=== PATIENT | female | born 1970 | race Caucasian/White ===

== ENCOUNTER 2018-03-26 08:35 | Emergency (ER) | payer MEDICAID ==
--- NOTE | 2018-03-26 08:50 | EDPHY ---
H & P Time Seen by Provider: 03/26/18 08:48 HPI/ROS: CHIEF COMPLAINT: Chest tightness HISTORY OF PRESENT ILLNESS: Patient is a history of hypertension and is on lisinopril. She did check her blood pressure over the weekend at the grocery store and got readings of 177/110 on Sunday and Sunday. She had a stressful morning with her 17-year-old daughter and noticed a knot in the center of her chest which she was driving to dropped her daughter off at school around 7:30 a.m.. When she went to go drop off her son it progressed to a left-sided chest tightness, she presents for evaluation. Symptoms mild on the left side. Do not radiate, not associated with diaphoresis or vomiting or jaw or arm or neck or back symptoms. Not exertional or pleuritic. No cough or hemoptysis. REVIEW OF SYSTEMS: Eye: Yesterday had some slight blurry vision, normal now ENT: no sore throat Cardiac: HPI no palpitations Pulmonary: no cough or SOB Abdomen: no vomiting, diarrhea, abdominal pain Musculoskeletal: no back pain or leg swelling Skin: no rash Neuro: no headache Constitutional: no fever : no urinary symptoms A comprehensive 10 point review of systems is otherwise negative aside from elements mentioned in the history of present illness. PAST MEDICAL HISTORY: Patient presented with chest pain and 07/10/2013 had a negative stress echo. History of hypertension. Appendectomy and orthopedic surgery. Negative for hypercholesterolemia or diabetes. Family history: Unknown, adopted Social history: Current nonsmoker, no recent travel or immobilization. General Appearance: Alert and conversant, cooperative. Eyes: No scleral icterus. ENT, Mouth: Normal mucous membranes. Respiratory: Normal respiratory effort, breath sounds equal, lungs are clear to auscultation. Not splinting. Cardiovascular: Regular rate and rhythm. Gastrointestinal: Abdomen is soft and non tender. Neurological: Alert, face symmetric, normal motor and sensory in extremities. Skin: Warm and dry, no rashes. Musculoskeletal: No peripheral edema. No calf tenderness. Psychiatric: Not agitated. Emergency Department course/MDM: EKG is normal. 1145: Patient has a HEART score of 3. 1 for age, 1 for risk factors, 1 for history. The shared decision-making instrument was personally reviewed with the patient by myself, including the risk of MACE. Patient states understanding and agreement with the chosen disposition after 2nd troponin. 1153: Discussed with Kemi patient's PCP. Can see patient tomorrow in the office to discuss adding a medication; call at 1230pm. Do not change her antihypertensive medication regimen at this time Smoking Status: Former smoker Constitutional: Initial Vital Signs Temperature (C) 36.9 C 03/26/18 08:41 Heart Rate 63 03/26/18 08:41 Respiratory Rate 16 03/26/18 08:41 Blood Pressure 202/100 H 03/26/18 08:41 O2 Sat (%) 98 03/26/18 08:41 O2 Delivery Mode Room Air Allergies/Adverse Reactions: No Known Allergies Allergy (Unverified 07/10/13 09:27) Home Medications: Medication Instructions Recorded Lisinopril 07/10/13 Multivitamin (OTC) 07/10/13 Albuterol 03/26/18 Lo Loestrin Fe 1-10 Tablet 03/26/18 Lysine 03/26/18 Vitamin D3 03/26/18 Medical Decision Making - Diagnostics EKG Interpretation: 12-lead EKG interpreted by me; official reading is in computer system. My interpretation is sinus rhythm rate 51 normal intervals and no ischemic changes. Imaging Results: Imaging Impressions Chest X-Ray 03/26/18 09:11 Impression: Normal. Imaging: I viewed and interpreted images myself Differential Diagnosis: Differential diagnosis considered for chest pain including but not limited to myocardial ischemia, aortic dissection, pericarditis, pulmonary embolus, chest wall pain, pleural inflammation and pulmonary infectious causes. - Data Points Laboratory Results: Laboratory Results 03/26/18 09:30 03/26/18 10:57 03/26/18 03/26/18 03/26/18 12:31 10:57 10:57 WBC RBC Hgb Hct MCV MCH MCHC RDW Plt Count MPV Neut % (Auto) Lymph % (Auto) [place] % (Auto) Eos % (Auto) Baso % (Auto) Nucleat RBC Rel Count Absolute Neuts (auto) Absolute Lymphs (auto) Absolute Monos (auto) Absolute Eos (auto) Absolute Basos (auto) Absolute Nucleated RBC Immature Gran % Immature Gran # Sodium 137 mEq/L mEq/L (135-145) Potassium 4.1 mEq/L mEq/L (3.3-5.0) Chloride 107 mEq/L mEq/L (97-110) Carbon Dioxide 21 mEq/l L mEq/l (22-31) Anion Gap 9 mEq/L mEq/L (8-16) BUN 10 mg/dL mg/dL (7-23) Creatinine 0.6 mg/dL mg/dL (0.6-1.0) Estimated GFR > 60 Glucose 86 mg/dL mg/dL (70-100) Calcium 9.2 mg/dL mg/dL (8.5-10.4) POC Troponin I 0.00 ng/mL ng/mL (0.00-0.08) Beta HCG, Qual NEGATIVE 03/26/18 03/26/18 03/26/18 09:33 09:30 09:30 WBC 8.17 10^3/uL 10^3/uL (3.80-9.50) RBC 4.66 10^6/uL 10^6/uL (4.18-5.33) Hgb 14.5 g/dL g/dL (12.6-16.3) Hct 43.2 % % (38.0-47.0) MCV 92.7 fL fL (81.5-99.8) MCH 31.1 pg pg (27.9-34.1) MCHC 33.6 g/dL g/dL (32.4-36.7) RDW 13.0 % % (11.5-15.2) Plt Count 236 10^3/uL 10^3/uL (150-400) MPV 11.9 fL H fL (8.7-11.7) Neut % (Auto) 71.9 % % (39.3-74.2) Lymph % (Auto) 19.8 % % (15.0-45.0) [place] % (Auto) 4.5 % % (4.5-13.0) Eos % (Auto) 2.9 % % (0.6-7.6) Baso % (Auto) 0.5 % % (0.3-1.7) Nucleat RBC Rel Count 0.0 % % (0.0-0.2) Absolute Neuts (auto) 5.87 10^3/uL 10^3/uL (1.70-6.50) Absolute Lymphs (auto) 1.62 10^3/uL 10^3/uL (1.00-3.00) Absolute Monos (auto) 0.37 10^3/uL 10^3/uL (0.30-0.80) Absolute Eos (auto) 0.24 10^3/uL 10^3/uL (0.03-0.40) Absolute Basos (auto) 0.04 10^3/uL 10^3/uL (0.02-0.10) Absolute Nucleated RBC 0.00 10^3/uL 10^3/uL (0-0.01) Immature Gran % 0.4 % % (0.0-1.1) Immature Gran # 0.03 10^3/uL 10^3/uL (0.00-0.10) Sodium REJ Potassium REJ Chloride REJ Carbon Dioxide REJ Anion Gap REJ BUN REJ Creatinine REJ Estimated GFR REJ Glucose REJ Calcium REJ POC Troponin I 0.00 ng/mL ng/mL (0.00-0.08) Beta HCG, Qual Point of Care Test Results: Chemistry 03/26/18 03/26/18 12:31 09:33 POC Troponin I 0.00 ng/mL ng/mL 0.00 ng/mL ng/mL (0.00-0.08) (0.00-0.08) Departure - Departure Disposition: Home, Routine, Self-Care Clinical Impression: Chest pain Qualifiers: Chest pain type: other chest pain Qualified Code(s): R07.89 - Other chest pain Hypertension Qualifiers: Hypertension type: unspecified Qualified Code(s): I10 - Essential (primary) hypertension Condition: Good Instructions: Chest Pain (ED) Referrals: Anjelica Mcmullen MD [Primary Care Provider] - 03/27/18 12:30 pm Jonathan Dover MD [Medical Doctor] - As per Instructions (if needed per your PCP> )
--- NOTE | 2018-03-26 09:14 | CPEKG ---
Test Reason : OPEN Blood Pressure : / mmHG Vent. Rate : 051 BPM Atrial Rate : 050 BPM P-R Int : 129 ms QRS Dur : 085 ms QT Int : 441 ms P-R-T Axes : 039 036 024 degrees QTc Int : 407 ms Sinus rhythm Confirmed by Don Decker ([id number]) on 03/26/2018 9:14:25 AM Referred By: Confirmed By:Don Decker
[2018-03-26 09:43] LABS: PLATELET COUNT 236 10^3/uL (150-400)
[2018-03-26 12:54] VITALS: BP 165/78
== END 2018-03-26 13:00 | disposition home or self-care (01) ==
DX: R07.89 Other chest pain (principal); I10 Essential (primary) hypertension
CPT/HCPCS: 84484-PO

== ENCOUNTER → 2018-05-25 | Outpatient (CLI) | payer MEDICAID | LOC: FIMAGING 15:05 | PROVIDERS: ATTEND Internal Medicine | DX: Z12.31 Encounter for screening mammogram for malignant neoplasm of breast (principal) ==

== ENCOUNTER 2018-07-29 12:50 | Emergency (ER) | payer MEDICAID ==
--- NOTE | 2018-07-29 13:44 | EDPHY ---
H & P Stated Complaint: CP Time Seen by Provider: 07/29/18 13:06 HPI/ROS: CHIEF COMPLAINT: Chest pain HISTORY OF PRESENT ILLNESS: The patient presents the emergency department with complaints of chest pain which occurred on Sunday. The patient has been sick with upper respiratory infection. She has been having a sharp substernal discomfort which is not positional since that time. The patient denies any history of exertional chest pain or shortness of breath. She did have an episode of chest pain approximately a year ago and was told to get an outpatient stress test which was not performed. The patient denies any asymmetric calf pain or swelling. The patient denies additional acute complaints. REVIEW OF SYSTEMS: A comprehensive 10 point review of systems is otherwise negative aside from elements mentioned in the history of present illness. Source: Patient - Medical/Surgical History Hx Asthma: Yes Hx Chronic Respiratory Disease: No Hx Diabetes: No Hx Cardiac Disease: Yes Hx Renal Disease: No Hx Cirrhosis: No Hx Alcoholism: No Hx HIV/AIDS: No Hx Splenectomy or Spleen Trauma: No Other PMH: medical- htn, irregular heartbeat. surgery- appy, ortho - Social History Smoking Status: Former smoker - Physical Exam Exam: General Appearance: Alert, no distress Eyes: Pupils equal and round no pallor or injection ENT, Mouth: Mucous membranes moist Respiratory: There are no retractions, lungs are clear to auscultation Cardiovascular: Regular rate and rhythm Gastrointestinal: Abdomen is soft and nontender, no masses, bowel sounds normal Neurological: A&O, normal motor function, normal sensory exam, normal cranial nerves Skin: Warm and dry, no rashes Musculoskeletal: Neck is supple nontender Extremities: symmetrical, full range of motion Psychiatric: Patient is oriented X 3, there is no agitation Constitutional: Initial Vital Signs Temperature (C) 36.5 C 07/29/18 12:54 Heart Rate 85 07/29/18 12:54 Respiratory Rate 16 07/29/18 12:54 Blood Pressure 138/102 H 07/29/18 12:54 O2 Sat (%) 98 07/29/18 12:54 O2 Delivery Mode Room Air Allergies/Adverse Reactions: No Known Allergies Allergy (Unverified 07/29/18 12:54) Home Medications: Medication Instructions Recorded Lisinopril 07/10/13 Multivitamin (OTC) 07/10/13 Albuterol 03/26/18 Lo Loestrin Fe 1-10 Tablet 03/26/18 Lysine 03/26/18 Vitamin D3 03/26/18 Medical Decision Making - Diagnostics EKG Interpretation: EKG: Complete interpretation has been separately recorded in the [employer] archive. Summary impression: Sinus rhythm, rate 67, minimal ST segment depression noted in the inferior lateral leads Imaging Results: Imaging Impressions Chest X-Ray 07/29/18 13:14 Impression: 1. There is no acute intrathoracic abnormality. 2. Query any symptoms referable to the left shoulder? ED Course/Re-evaluation: The patient presents the ED with several days of atypical chest pain. The patient has some nonspecific changes noted on her EKG. The patient's troponin is normal. Chest x-ray demonstrates no evidence of acute disease. The remainder of the patient's laboratory testing is normal. Patient has been told that she is felt to be low risk for acute coronary syndrome however given the subtle changes on her EKG I do feel should be considered for a treadmill stress test. Patient tells me that she is scheduled to see her primary care provider at the [facility] who will facilitate this study for her. Patient understands that she can return to the emergency department at any point time for worsening symptoms or exertional symptoms. Patient is also been provided the contact number of our on-call merchant banker if she has any difficulty establishing care through [facility]. Differential Diagnosis: Differential diagnosis considered includes acute coronary syndrome, costochondritis, pneumonia, pneumothorax, pericarditis - Data Points Laboratory Results: Laboratory Results 07/29/18 13:15 07/29/18 13:15 07/29/18 07/29/18 07/29/18 13:21 13:15 13:15 WBC 9.52 10^3/uL H 10^3/uL (3.80-9.50) RBC 4.73 10^6/uL 10^6/uL (4.18-5.33) Hgb 14.9 g/dL g/dL (12.6-16.3) Hct 43.9 % % (38.0-47.0) MCV 92.8 fL fL (81.5-99.8) MCH 31.5 pg pg (27.9-34.1) MCHC 33.9 g/dL g/dL (32.4-36.7) RDW 12.4 % % (11.5-15.2) Plt Count 191 10^3/uL 10^3/uL (150-400) MPV 11.4 fL fL (8.7-11.7) Neut % (Auto) 65.2 % % (39.3-74.2) Lymph % (Auto) 24.9 % % (15.0-45.0) [place] % (Auto) 6.1 % % (4.5-13.0) Eos % (Auto) 3.2 % % (0.6-7.6) Baso % (Auto) 0.3 % % (0.3-1.7) Nucleat RBC Rel Count 0.0 % % (0.0-0.2) Absolute Neuts (auto) 6.21 10^3/uL 10^3/uL (1.70-6.50) Absolute Lymphs (auto) 2.37 10^3/uL 10^3/uL (1.00-3.00) Absolute Monos (auto) 0.58 10^3/uL 10^3/uL (0.30-0.80) Absolute Eos (auto) 0.30 10^3/uL 10^3/uL (0.03-0.40) Absolute Basos (auto) 0.03 10^3/uL 10^3/uL (0.02-0.10) Absolute Nucleated RBC 0.00 10^3/uL 10^3/uL (0-0.01) Immature Gran % 0.3 % % (0.0-1.1) Immature Gran # 0.03 10^3/uL 10^3/uL (0.00-0.10) Sodium 135 mEq/L mEq/L (135-145) Potassium 3.5 mEq/L mEq/L (3.5-5.2) Chloride 101 mEq/L mEq/L (97-110) Carbon Dioxide 24 mEq/l mEq/l (22-31) Anion Gap 10 mEq/L mEq/L (6-14) BUN 15 mg/dL mg/dL (7-23) Creatinine 0.7 mg/dL mg/dL (0.6-1.0) Estimated GFR > 60 Glucose 92 mg/dL mg/dL (70-100) Calcium 9.5 mg/dL mg/dL (8.5-10.4) POC Troponin I 0.00 ng/mL ng/mL (0.00-0.08) Point of Care Test Results: Chemistry 07/29/18 13:21 POC Troponin I 0.00 ng/mL ng/mL (0.00-0.08) Departure - Departure Disposition: Home, Routine, Self-Care Clinical Impression: Chest pain Condition: Good Instructions: Chest Pain (ED) Additional Instructions: 1. Based upon the testing done in the Emergency Department today we see no evidence of a heart attack. 2. We are unable to fully exclude coronary artery disease based upon the testing available in the Emergency Department. 3. For this reason, we would like you to be seen by cardiology for consideration of additional testing within the next 3 days. 4. Please contact the merchant banker, Dr. Cara Singer, you have been referred to schedule this appointment as soon as possible. Their offices are typically open from 8:30am-5pm M-F. 5. Please return to the Emergency Department immediately for any recurrent chest pain, difficulty breathing or other concerns. Referrals: Anjelica Mcmullen MD [Primary Care Provider] - As per Instructions Cara Singer MD [Medical Doctor] - As per Instructions
[2018-07-29 13:50] LABS: PLATELET COUNT 191 10^3/uL (150-400)
[2018-07-29 14:39] VITALS: BP 124/78
--- NOTE | 2018-07-29 14:56 | CPEKG ---
Test Reason : OPEN Blood Pressure : / mmHG Vent. Rate : 067 BPM Atrial Rate : 068 BPM P-R Int : 114 ms QRS Dur : 083 ms QT Int : 421 ms P-R-T Axes : 003 032 017 degrees QTc Int : 445 ms Sinus rhythm Minimal ST depression, lateral leads Confirmed by Bryan Marquez ([id number]) on 07/29/2018 2:56:05 PM Referred By: PHYSICIAN ED Confirmed By:Bryan Marquez
== END 2018-07-29 14:41 | disposition home or self-care (01) ==
DX: R07.9 Chest pain, unspecified (principal); I10 Essential (primary) hypertension
CPT/HCPCS: 84484-ER